=== PATIENT | male | born 1965 | race Caucasian/White ===

== ENCOUNTER → 2017-03-15 | Outpatient (CLI) | payer BC ==
[~2017-03-15] MED LIST: LRT5 PO
--- NOTE | 2017-03-16 05:48 | PAP/PSG TECHNICIAN REPORT ---
[facility] [employer]elry [employer] Polysomnogram Report Study name: None Report date: 03/16/2017 Study date: 03/15/2017 Referring Physician: Cas Cassidy Name: UCHE JOLLY Interpreting Physician: [place] D.O. 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 Sex: Male Age: 52 StudyType: PSG Weight: 154 lbs Height: 52 years, Height 70" BMI: 22.09 Medications: Ranitidine 150 mg, Sertraline HCL 50 mg Patient History 52 yr. old male here for a diagnostic sleep study. Patient complains of never feeling rested, EDS, loud snoring, witnessed apneas and restless legs during the day. Patients brother and sister have FRANDY. Patients [place] Sleepiness Scale Score is 1/24. Parameters Monitored NPSG: E1-M2, E2-M1, Fp1-M2, Fp2-M1, F3-M2, F4-M2, F4-M1, C3-M2, C4-M2, C4-M1, O1-M2, O2-M2, O2-M1, T3-M2, T4-M1, P3-M2, P4-M1, CHIN1, CHIN2, HR, EKG, Legs, PFLOW, SNOR, FLOW, CFLOW, Tidal Volume, THOR, ABDO, SpO2, PLTH, CPRESS, ETCO2 Wave, ETCO2, pH Sleep Architecture Sleep Stages Time at Lights Off 9:37:01 PM STAGES Time (min.) TST (%) Time at Lights On 5:39:31 AM Wake 121.5 -- Total Recording Time (TRT) 482.00 min. N1 86.5 24 Total Sleep Period (TSP) 441.0 min. N2 182.0 50 Total Sleep Time (TST) 360.5min. N3 16.5 5 Awake Time 121.5 min. REM 75.5 21 Wake after Sleep Onset 80.5 min. Sleep Efficiency (SE) 75 % Sleep Onset Latency (ZANDRA) 41.5 min. Number of Stage 1 Shifts None Awakenings 37 Stage Changes 125 Number of REM periods 7 REM 75.5 21 REM Latency 144.0 min. NREM 285.0 79 Body Position Analysis Supine Right Left Side Prone Vertical Total Sleep Time (min.) 53.9 168.2 94.7 262.92 85.9 0.9 Total Sleep Time (%) 6% 47% 26% 73 21% N/A% Total Sleep Time REM (min.) 0.0 31.0 5.0 None 39.5 0.0 Total Sleep Time NREM (min.) 20.1 137.2 89.7 None 38.0 0.0 Intermittent Wake (min.) 33.8 48.9 29.4 None 8.4 0.9 Total Sleep Period (%) 6% None None None None None Arousals Myoclonus (PLM) * Events Count Index Events Count Index Spontaneous 15 2 Events Awake (PLMW) 192 94.8 Respiratory 2 0.3 Events Asleep w/ Arousal (PLMA) 22 3.7 PLM 22 4 Events Asleep w/o Arousal (PLMS) 104 17.3 Snoring 1 0 Total Asleep 126 21.0 Total 40 7 Total 318 40 Respiratory Analysis * CA OA MA CH H RERA Total Count 1 0 0 0 8 1 9 Index 0.2 0.0 0.0 0 1.3 0 1.7 Mean Duration 10.0 0.0 0.0 0.00 22.0 26.1 21.2 Longest Duration 10.0 0.0 0.0 0.00 0.0 26.1 36.6 Respiratory Event Summary Total Supine ~Supine Right Left Prone REM NREM Apneas Count 1 0 1 1 0 0 1 0 Index 0.2 0 0 0.4 0.0 0 1 0 Hypopneas (4% Desat) Count 8 7 1 0 1 0 0 8 Index 1.3 20.9 0 0.0 0.6 0.0 0.0 1.7 Apneas & All Hypopneas Count 9 7 2 1 1 0 1 8 Index 1.5 21 0 0 1 0 0.8 1.7 Respiratory Events (Rn Telemetry+All Hyp+RERA) Count 9 7 3 1 2 0 1 8 Index 1.7 21 1 0.4 1.3 0.0 0.8 1.9 Respiratory Related Arousal Count 2 7 1 0 1 0 0 2 Index 0.3 3 0 0 1 0 0 0 Snoring Analysis Supine Right Left Prone REM NREM Total Snore duration 1.8 min Snores count 5 16 15 23 2 57 59 Snore mean duration 1.9 Sec Snores index 15 6 10 18 1.6 12.0 9.8 TST with snoring (%) 0.5% Desaturation Event Summary: Minimum %SpO2 Event Count Mean/Min/Max Duration(sec.) Desaturation Index % Time In Bed > 90 24 41.3 / 9.0 / 60.0 3.0 99.2 86 - 90 0 N/A 0.0 0.8 81 - 85 0 N/A 0.0 0.0 76 - 80 0 N/A 0.0 0.0 71 - 75 0 N/A 0.0 0.0 66 - 70 0 N/A 0.0 0.0 61 - 65 0 N/A 0.0 0.0 56 - 60 0 N/A 0.0 0.0 51 - 55 0 N/A 0.0 0.0 < 50 0 N/A 0.0 0.0 Total REM NREM Awake <50% 0.0 min. 0.0 min. 0.0 min. 0.0 min. 51 - 60% 0.0 min. 0.0 min. 0.0 min. 0.0 min. 61 - 70% 0.0 min. 0.0 min. 0.0 min. 0.0 min. 71 - 80% 0.0 min. 0.0 min. 0.0 min. 0.0 min. 81 - 90% 3.9 min. 0.1 min. 2.4 min. 1.4 min. 91 - 100% 472.1 min. 75.4 min. 282.4 min. 114.4 min. Average 95 95 94 95 Minimum SpO2 87 90 87 89 Desaturation Event Index 3.0 2.4 2.1 5.9 # Desat. Events below 89% 3 N/A 3 N/A Time(%) with Saturation below 89% 0.2 0.0 0.2 0.0 Time(min.) with Saturation below 89% 0.7 0.0 0.7 0.0 Time (mins) REM (mins) NREM (mins) % of TST SpO2 Below 90% 7 1 N6 0.4 SpO2 Below 88% 2 0 0 0 Heart Rate Analysis Min (bpm) Max (bpm) Average (bpm) Awake 39 155 56 NREM 40 83 52 REM 40 77 55 Overall 40 83 52 Supplemental O2 Values Minimum O2 level: None Value Start Time End Time Jewelry Mold Maker Comments Mr. Jolly slept in the right, left, supine and prone positions. No cardiac arrhythmia. PLMs noted. No bruxism noted. Snoring was noted and scored as a 2 on a scale of 0 through 5. (0=no snoring, 5=snoring loud enough to be heard through a closed door or down the [place] way) Mr. Jolly did not wake to use the restroom during the night. Mr. Jolly stated, I did not sleep as well as I do when I am in my own bed. The final report will be interpreted and signed by a sleep physician. The completed physician report will then be placed in the patient medical record. Therapy (cm H2O) 0 TIB (min.) 482.0 TST (min.) 360.5 Sleep Onset (min.) 41.5 REM Onset From Sleep (min.) 144.0 Sleep Efficiency % 75 Wakefulness (%) 25 Wakefulness (min.) 121.5 NREM 1 (%) 24 NREM 1 (min.) 86.5 NREM 2 (%) 50 NREM 2 (min.) 182.0 NREM 3 (%) 5 NREM 3 (min.) 16.5 REM (%) 21 REM (min.) 75.5 # Arousals 40 Arousal Index 7 # Snore 59 Snore Index 9.8 AHI 1.5 AHI Supine 21 AHI Non-Supine 0 NREM AHI 1.7 REM AHI 0.8 RDI 1.7 # Obstructive Apnea 0 # Central Apnea 1 # Mixed Apnea 0 # Hypopneas 8 RERAs 1 Total Respiratory Events 14 Time Below SpO2 89% (min.) 0.7 Mean NREM SpO2 (%) 94 Mean REM SpO2 (%) 95 Mean Sleep SpO2 (%) 94 Min NREM SpO2 (%) 87 Min REM SpO2 (%) 90 Position Supine (min.) 53.9 Position Non-supine (min.) 340.4 LM Index Sleep 21.0 LM Index NREM 23.8 LM Index REM 10.3 Mean Heart Rate (bpm) 52 Min Heart Rate (bpm) 40
--- NOTE | 2017-03-18 14:00 | Sleep Study ---
Sleep Study Report Date of Service: 03/15/2017 Sleep Study Report Clinical data: The patient is a 52-year-old male with complaints of snoring, observed apnea, fatigue, and never feeling rested. His [place] score is 1/24. The patient has restless legs during the day. Two siblings have obstructive sleep apnea. His BMI is 22.09. Sleep architecture: The total sleep period was 441.0 minutes. The total sleep time was 360.5 minutes. The sleep efficiency was moderately reduced to 75%. The sleep latency was increased to 41.5 minutes. Wake after sleep onset was increased at 80.5 minutes. REM latency was prolonged to 144 minutes. Sleep consisted of stage N1 24%, stage N2 50%, stage N3 5%, and stage REM 21%. Arousal data: The patient had a total of 40 arousals including 15 spontaneous arousals, 2 respiratory arousals, 22 PLM arousals, and 1 snoring arousal. The arousal index was 7. PLM data: The patient had a total of 126 periodic limb movements of sleep for a PLM index of 21. There were 22 arousals associated with leg movements for a PLM arousal index of 3.7. EKG: The underlying cardiac rhythm was normal sinus. The cardiac rates ranged from 42 83 beats per minute. The average heart rate was 52 beats per minute. No cardiac arrhythmia was noted. Respiratory data: The patient had a total of 9 respiratory events including 1 central apnea and 8 hypopneas. Hypopneas were scored according to the 4% desaturation rule. The longest apnea was 10 seconds. The mean duration of the hypopneas was 22 seconds. There was 1 RERAs. These results reflect no significant sleep apnea. Oximetry data: The average saturation was 95%. The minimum saturation was 87%. There was only 0.7 minutes with saturations less than 89%. Wafer Cleaner comments: The patient slept on the right, left, supine, and prone positions. No cardiac arrhythmia. PLMS noted. No bruxism noted. Snoring was noted and scored as a 2 on a scale of 0 through 5. The patient did not awaken to use the restroom during the night. Impressions: 1. No evidence of obstructive sleep apnea 2. Periodic limb movement disorder Comments: This study showed the patient had a decreased sleep efficiency. He did indicate that he did not sleep as well as he usually does at home. There was a prolonged sleep onset and there was increased wake after sleep onset. He did have a moderate number of periodic limb movements. There was a history of restless legs during the day. More typically restless leg syndrome involves restless legs in the evening hours. It seems unlikely the limb movements are significantly disturbing his sleep however. His sleep was not well consolidated. There were frequent sleep stage changes. Oxygenation was well preserved. Recommendations: 1. Consideration is given to a trial of medication for the restless legs. Clinical correlation however is required to make this determination. 2. The patient should be advised of the appropriate principles of sleep hygiene including having a regular sleep-wake schedule and allowing 7.5-8 hours of sleep time per night. 3. The patient should follow up with Dr. Cassidy. Copies To 1: Cas Cassidy M.D.; [place],
== END | disposition home or self-care (01) ==
LOC: C.NEUR 20:00
PROVIDERS: ATTEND Family Medicine
DX: R53.83 Other fatigue (principal); G47.00 Insomnia, unspecified

== ENCOUNTER 2017-06-07 13:36 | Emergency (ER) | payer OTHER, BC ==
[~2017-06-07] VITALS: Ht 172.7 cm; Wt 77.0 kg
[2017-06-07 13:39] VITALS: TEMP 36.8; Ht 172.7 cm; Wt 77.0 kg
[2017-06-07] MEDS ORDERED: IBUPROFEN 600 MG TAB PO STA (13:48)
--- NOTE | 2017-06-07 14:14 | DIAGNOSTIC IMAGING REPORT ---
LEFT SHOULDER 3 VIEWS CLINICAL HISTORY: Left shoulder pain. FINDINGS: 3 views of the left shoulder are obtained. No prior studies are available for comparison at the time of dictation. The skeletal structures are well mineralized. No fracture or dislocation is seen. Mild productive degenerative change is seen at the acromioclavicular joint. The glenohumeral articulation is preserved. The overlying soft tissues are within normal limits. Imaged left lung parenchyma appears clear. IMPRESSION: No acute bony abnormality is seen in the left shoulder. Electronically signed by: Km Casey M.D. 06/07/2017 2:13 PM Dictated Date/Time: 06/07/2017 2:12 PM
[2017-06-07] MEDS ORDERED: RESTLESS LEG MED (14:22)
[2017-06-07] MEDS ORDERED: anxiety medication (14:22)
[2017-06-07 14:52] VITALS: BP 153/99; PULSE 74; O2SAT 97
--- NOTE | 2017-06-07 16:39 | EMERGENCY ROOM VISIT NOTE ---
ED Visit Note First contact with patient: 13:41 Chief Complaint: I hurt my left shoulder work today. History of Present Illness: Mr. Richardson is a 52-year-old white male who ambulates into the ED complaining of left shoulder pain. Patient reports approximately 11 AM this morning, approximately 2.5 hours ago, he reports he was lifting a wheelbarrow full of shingles into a dumpster and developed an acute onset of anterior humeral pain and posterior deltoid pain. Since that time his pain has been constant. Currently he describes the pain as a sharp sensation. With the shoulder at rest he reports it's mild and rates his discomfort 2/10 but when he attempts to do abduction, extension or horizontal flexion his pain worsens and he rates his discomfort 7/10. His pain is nonradiating. He has not taken medication for his pain prior to arrival at the hospital. He denies any associated symptoms including neck pain, arm weakness/numbness/tingling, previous significant injuries or surgeries to the extremity or the cervical spine. Review of Systems: As noted above in history of present illness. Past Medical History: Restless leg syndrome, anxiety. Current Medications: Unspecified restless legs syndrome medication and anxiety medication. Allergies to Medications: Patient denies. Social History: Patient is currently employed; he feels safe in his home environment; he denies tobacco use. Physical Examination: Vital Signs: Date Time Temp Pulse Resp B/P (MAP) Pulse Ox O2 Delivery O2 Flow Rate FiO2 06/07/17 14:52 74 18 153/99 97 Room Air 06/07/17 13:39 36.8 86 18 166/88 97 Room Air GENERAL: 52-year-old male in mild distress due to pain, nontoxic-appearing, afebrile and hemodynamically stable. NEUROLOGICAL: Awake, alert and oriented to person, place and time. Answering questions appropriately and following commands. SKIN: Warm, dry and pink. No soft tissue eruptions or trauma noted. BACK: No tenderness over the bony cervical and thoracic spine. No tenderness throughout the paraspinous muscles. LEFT UPPER EXTREMITY: No gross bony deformity. Mild tenderness over the anterior humeral senna bicipital groove without erythema or edema. No other bony tenderness throughout the humeral head, scapular or clavicle. Mild tenderness over the posterior deltoid muscle without any muscle deficits, swelling or erythema. Patient has full passive range of motion but with active and resistive range of motion is decreased with abduction and extension of the shoulder as well as horizontal flexion. No tenderness throughout the distal humerus, elbow or forearm. Distal pulses are intact. Distal sensation to light touch is intact. Capillary refill is brisk. ED Course: Patient is assessed as noted above. Patient's medication list was reviewed. Patient was given 600 mg of ibuprofen by mouth for pain. Left Shoulder X-Rays: Were read by myself and the radiologist showing no acute fractures or dislocations. Radiologist knows degenerative changes at the acromioclavicular joint. Patient was placed in a shoulder sling. Patient was educated about today's findings and instructed on his treatment plan ; he verbalized understanding and agreement with this plan. Clinical Impression: Left shoulder pain. Left deltoid muscle strain. Work related injury. Disposition: Patient discharged home in stable condition; prior to departure he was reassessed and subjectively reported he was feeling slightly better. Plan: Comfort measures including rest, ice, sling and ibuprofen and acetaminophen were discussed with the patient. Patient was encouraged to come out of the sling 5-6 times a day and do simple range of motion exercises within the level of his pain. Patient was signed off work for 3 days and encouraged to follow-up with Workmen' s Compensation for recheck and return to work instruction. Patient was encouraged return ED for worsening/uncontrolled pain, uncontrolled swelling, arm weakness/numbness/tingling or any new/concerning symptoms.
== END 2017-06-07 14:52 | disposition home or self-care (01) ==
LOC: C.EDB 13:38 → C.EDD 14:52
DX: S46.912A Strain of unspecified muscle, fascia and tendon at shoulder and upper arm level, left arm, initial encounter (principal); X58.XXXA Exposure to other specified factors, initial encounter; Y92.89 Other specified places as the place of occurrence of the external cause; Y99.0 Civilian activity done for income or pay; M25.512 Pain in left shoulder; F41.9 Anxiety disorder, unspecified; G25.81 Restless legs syndrome

== ENCOUNTER → 2017-10-05 | Day surgery (SDC) | payer BC, OTHER ==
[2017-09-27 07:32] VITALS: Ht 177.8 cm; Wt 81.8 kg
[~2017-10-05] VITALS: Ht 177.8 cm; Wt 81.8 kg
[~2017-10-05] MED LIST changes: +LIDOCAINE HCL 2% 2 ML VIAL (20MG/ML) ONE; -LRT5 PO; +MIDAZOLAM HCL 1 MG/ML 2ML VIAL ONE; +ONDANSETRON INJ 2 MG/ML 2 ML VIAL ONE; +PROPOFOL IV EMULSION 10 MG/ML 20 ML VIAL IV ONE; +RANI150T85 PO; +SERT50TA PO
[2017-10-05 10:32] VITALS: TEMP 36.6
--- NOTE | 2017-10-05 10:33 | Endo History and Physical ---
History & Physical Date of Service: Oct 05, 2017. Chief Complaint: Screening Referring Physician: Dr. Cassidy History of Present Illness 52 yo CM who presents for screening colonoscopy. Past Surgical History Hx Cardiac Surgery: No Hx Internal Defibrillator: No Hx Pacemaker: No Hx Abdominal Surgery: Yes ("TRIPPLE HERNIA SURGERY", APPY) Hx of Implantable Prosthesis: No Hx Post-Op Nausea and Vomiting: No Hx Cancer Surgery: No Hx Thoracic Surgery: No Hx Orthopedic: Yes (RT/LEFT SHOULDER SURGERY) Hx Urinary Tract Surgery: No Family History None Social History Smoking Status: Never Smoker Hx Substance Use: No Hx Alcohol Use: Yes (OCCASIONALLY) Allergies Coded Allergies: No Known Allergies (Unverified , 09/27/17) Current Medications Reported Home Medications Medications Dose Route/Sig Max Daily Dose Days Date Category Zantac (Ranitidine HCl) 150 Mg Tab 150 Mg PO HS 09/27/17 Reported Zoloft (Sertraline HCl) 50 Mg Tab 50 Mg PO QAM 09/27/17 Reported Vital Signs Weight (Kilograms): 81.82 Height (Feet): 5 Height (Inches): 10 Physical Exam General Appearance: WD/WN, no apparent distress Respiratory/Chest: Auscultation: breath sounds normal Cardiovascular: Heart Auscultation: RRR Abdomen: Bowel Sounds: normal Inspection & Palpation: soft, non-distended, no tenderness, guarding & rebound Assessment and Plan Assessment: 52 yo CM who presents for screening colonoscopy. Plan: Proceed with colonoscopy.
--- NOTE | 2017-10-05 11:33 | Discharge Instructions ---
Endoscopy Patient Instructions Date / Procedure(s) Performed Oct 05, 2017. Colonoscopy Allergy Information Coded Allergies: No Known Allergies (Unverified , 10/05/17) Discharge Date / Findings Oct 05, 2017. Colon polyps Internal hemorrhoids Medication Instructions OK to resume all medications today as prescribed Reported Home Medications Medications Dose Route/Sig Max Daily Dose Days Date Category Zantac (Ranitidine HCl) 150 Mg Tab 150 Mg PO HS 09/27/17 Reported Zoloft (Sertraline HCl) 50 Mg Tab 50 Mg PO QAM 09/27/17 Reported Provider Instructions Activity Restrictions - No exercising or heavy lifting for 24 hours. - Do not drink alcohol the day of the procedure. - Do not drive a car or operate machinery until the day after the procedure. - Do not make any important decisions or sign important papers in 24 hours after the procedure. Following Day: - Return to full activity which may include returning to work/school. Diet Start your diet with liquids and light foods (jello, soup, juice, toast). Then eat your usual diet if not nauseated. Treatment For Common After Affects For mild abdominal pain, bloating, or excessive gas: - Rest - Eat lightly - Lie on right side Follow-Up Information Follow-up with Ange as scheduled Anesthesia Information What You Should Know You have had a procedure that required some medicine to reduce anxiety and discomfort. This treatment is called moderate sedation. After receiving the treatment, you may be sleepy, but you will be able to breathe on your own. The effects of the treatment may last for several hours. Follow these instructions along with Activity/Diet recommendations noted above: * Do NOT do anything where dizziness or clumsiness would be dangerous. * Rest quietly at home today, then you can be up and about tomorrow. * Have a responsible person stay with you the rest of today. * You may have had an I.V. today. If so, you may take the dressing off later today. Recommendations Call your doctor if: * Trouble breathing * Continuous vomiting for more than 24 hours * Temperature above 101 degrees * Severe abdominal pain or bloating * Pain not relieved by pain medicine ordered * There is increased drainage or redness from any incision * A large amount of rectal bleeding greater than 2-3 tablespoons. (If you had a polyp/s removed or have hemorrhoids, a small amount of blood - from the rectum is to be expected.) * You have any unanswered questions or concerns. IN THE EVENT OF A SERIOUS EMERGENCY, GO TO THE NEAREST EMERGENCY ROOM Your discharge instructions were prepared by provider Magdaleno Vargas. Patient Instructions Signature Page Jerry Richardson Patient (or Guardian) Signature/Date: I have read and understand the instructions given to me by my caregivers. Caregiver/RN/Doctor Signature/Date: The above-named patient and/or guardian has received patient instructions on this date. + Original Patient Signature Page (only) stays with chart. Please make copy for patient.
--- NOTE | 2017-10-05 11:37 | GI REPORT ---
Procedure Date: 10/05/2017 11:15 AM Procedure: Colonoscopy Indications: Screening for colorectal malignant neoplasm Medicines: Monitored Anesthesia Care Complications: No immediate complications. Estimated Blood Loss: Estimated blood loss: none. Procedure: Pre-Anesthesia Assessment: - Prior to the procedure, a History and Physical was performed, and patient medications and allergies were reviewed. The patient's tolerance of previous anesthesia was also reviewed. The risks and benefits of the procedure and the sedation options and risks were discussed with the patient. All questions were answered, and informed consent was obtained. Prior Anticoagulants: The patient has taken no previous anticoagulant or antiplatelet agents. ASA Grade Assessment: II - A patient with mild systemic disease. After reviewing the risks and benefits, the patient was deemed in satisfactory condition to undergo the procedure. After I obtained informed consent, the scope was passed under direct vision. Throughout the procedure, the patient's blood pressure, pulse, and oxygen saturations were monitored continuously. The scope was introduced through the anus and advanced to the terminal ileum. The colonoscopy was performed without difficulty. The patient tolerated the procedure well. The quality of the bowel preparation was good. The terminal ileum, ileocecal valve, appendiceal orifice, and rectum were photographed. Findings: The perianal and digital rectal examinations were normal. Two sessile polyps were found in the sigmoid colon and ascending colon. The polyps were 4 to 5 mm in size. These polyps were removed with a cold snare. Resection and retrieval were complete. Non-bleeding internal hemorrhoids were found during retroflexion. The hemorrhoids were small. Impression: - Two 4 to 5 mm polyps in the sigmoid colon and in the ascending colon, removed with a cold snare. Resected and retrieved. - Non-bleeding internal hemorrhoids. Recommendation: - Resume previous diet. - Continue present medications. - Repeat colonoscopy for surveillance based on pathology results. - Return to primary care physician as previously scheduled. Magdaleno Vargas DO 10/05/2017 11:36:52 AM This report has been signed electronically. Note Initiated On: 10/05/2017 11:15 AM I attest to the content of the Intraoperative Record and orders documented therein, exceptions below
[2017-10-05 12:02] VITALS: BP 140/93; PULSE 47; O2SAT 98
--- NOTE | 2017-10-05 12:12 | Anesthesiology Progress Note ---
Anesthesia Post Op Note Date & Time Oct 05, 2017 at 12:12 Vital Signs Pain Intensity: 0 Vital Signs Past 12 Hours Date Time Temp Pulse Resp B/P (MAP) Pulse Ox O2 Delivery O2 Flow Rate FiO2 10/05/17 12:02 47 18 140/93 (109) 98 Room Air 10/05/17 11:47 59 18 129/75 (93) 93 Room Air 10/05/17 11:32 68 16 129/75 (93) 93 Room Air 10/05/17 10:32 36.6 69 20 129/81 (97) 98 Room Air Notes Mental Status: alert / awake / arousable, participated in evaluation Pt Amnestic to Procedure: Yes Nausea / Vomiting: adequately controlled Pain: adequately controlled Airway Patency, RR, SpO2: stable & adequate BP & HR: stable & adequate Hydration State: stable & adequate Anesthetic Complications: no major complications apparent
== END | disposition home or self-care (01) ==
LOC: C.GI 10:12
PROVIDERS: ATTEND Internal Medicine
DX: Z12.11 Encounter for screening for malignant neoplasm of colon (principal); D12.2 Benign neoplasm of ascending colon; D12.5 Benign neoplasm of sigmoid colon; K64.8 Other hemorrhoids; Z79.899 Other long term (current) drug therapy